=== PATIENT | male | born 1975 | race Caucasian/White ===

== ENCOUNTER 2019-12-23 12:39 | Emergency (ER) | payer OTHER ==
[~2019-12-23] VITALS: Ht 185.4 cm; Wt 72.6 kg
[2019-12-23 13:20] VITALS: BP 167/107
== END 2019-12-23 13:20 ==
LOC: ER 12:39
DX: M79.671 Pain in right foot (principal); M79.672 Pain in left foot; Z53.21 Procedure and treatment not carried out due to patient leaving prior to being seen by health care provider

== ENCOUNTER 2020-03-25 06:37 | Emergency (ER) | payer OTHER ==
[~2020-03-25] VITALS: Ht 182.9 cm; Wt 70.3 kg
[2020-03-25 07:39] VITALS: BP 153/88
== END 2020-03-25 07:41 | disposition home or self-care (01) ==
LOC: ER 06:37
DX: F15.10 Other stimulant abuse, uncomplicated (principal); Z88.0 Allergy status to penicillin

== ENCOUNTER 2020-04-28 07:57 | Emergency (ER) | payer OTHER ==
[~2020-04-28] VITALS: Ht 185.4 cm; Wt 65.8 kg
[2020-04-28 07:59] VITALS: BP 171/113
== END 2020-04-28 08:38 | disposition home or self-care (01) ==
LOC: ER 07:57
DX: Z00.00 Encounter for general adult medical examination without abnormal findings (principal); F17.210 Nicotine dependence, cigarettes, uncomplicated; Z88.0 Allergy status to penicillin; Z59.0 Homelessness

== ENCOUNTER 2020-05-26 06:53 | Emergency (ER) | payer OTHER ==
[~2020-05-26] VITALS: Ht 185.4 cm; Wt 81.7 kg
[2020-05-26 08:41] VITALS: BP 136/86
== END 2020-05-26 09:17 | disposition home or self-care (01) ==
LOC: ER 06:53
DX: S63.501A Unspecified sprain of right wrist, initial encounter (principal); F17.210 Nicotine dependence, cigarettes, uncomplicated; Z88.0 Allergy status to penicillin; V87.8XXA Person injured in other specified noncollision transport accidents involving motor vehicle (traffic), initial encounter; Y93.89 Activity, other specified; Y92.89 Other specified places as the place of occurrence of the external cause; Y99.8 Other external cause status

== ENCOUNTER 2020-08-03 16:05 | Emergency (ER) | payer OTHER ==
[~2020-08-03] VITALS: Ht 185.4 cm; Wt 67.1 kg
[2020-08-03 16:10] VITALS: BP 137/89
[2020-08-03] MEDS ORDERED: NAPROSYN500 MG PO (16:24)
== END 2020-08-03 16:40 | disposition home or self-care (01) ==
LOC: ER 16:05
DX: D17.24 Benign lipomatous neoplasm of skin and subcutaneous tissue of left leg (principal); D17.23 Benign lipomatous neoplasm of skin and subcutaneous tissue of right leg; F17.210 Nicotine dependence, cigarettes, uncomplicated; Z88.0 Allergy status to penicillin

== ENCOUNTER 2020-08-08 08:47 | Emergency (ER) | payer OTHER ==
[~2020-08-08] VITALS: Ht 185.4 cm; Wt 68.0 kg
[~2020-08-08 08:47] MED LIST: NAPROSYN500 MG PO
[2020-08-08 08:51] VITALS: BP 138/97
--- NOTE | 2020-08-08 14:10 | EKG ---
[address] [place] [address] ELECTROCARDIOGRAM REPORT Name: MIGUEL A BONILLA Room #: REG DADA Zepeda#: [id number] Admission: 08/08/20 Attend Phys: Discharge: Date of : 77 Report #: [id number] [facility] ED Test Date: 2020-08-08 Test Time: 08:50:40 Pat Name: MIGUEL A BONILLA Department: Room: Gender: M Dental Patient Coordinator: reji : 1975 Requested By: Joe Mcdaniel Order Number: [id number] MD: Jaret Bergman Measurements Intervals [place] Rate: 89 P: 85 NV: 153 QRS: 90 QRSD: 100 T: 65 QT: 367 QTc: 447 Interpretive Statements Sinus rhythm Right atrial enlargement Borderline right axis deviation Abnormal R-wave progression, late transition Probable left ventricular hypertrophy Baseline wander in lead(s) V2 No previous ECG available for comparison Electronically Signed On 08-08-2020 14:10:47 MACHINERY RIGGER by Jaret Bergman [email or web address] <ELECTRONICALLY SIGNED> By: Jaret Bergman MD, [facility] 08/08/20 1410 0850 0850 Jaret Bergman MD, FACAyo /EPI
== END 2020-08-08 09:50 | disposition home or self-care (01) ==
LOC: ER 08:47
DX: G89.29 Other chronic pain (principal); M25.512 Pain in left shoulder; F17.210 Nicotine dependence, cigarettes, uncomplicated; Z88.0 Allergy status to penicillin

== ENCOUNTER 2020-12-14 04:28 | Emergency (ER) | payer OTHER ==
[~2020-12-14] VITALS: Ht 185.4 cm; Wt 68.0 kg
[2020-12-14 05:58] VITALS: BP 151/97
== END 2020-12-14 06:00 | disposition home or self-care (01) ==
LOC: ER 04:28
DX: S01.01XA Laceration without foreign body of scalp, initial encounter (principal); M54.2 Cervicalgia; F17.210 Nicotine dependence, cigarettes, uncomplicated; Z59.0 Homelessness; Z98.890 Other specified postprocedural states; Z88.0 Allergy status to penicillin; W18.09XA Striking against other object with subsequent fall, initial encounter; Y93.89 Activity, other specified; Y92.89 Other specified places as the place of occurrence of the external cause; Y99.8 Other external cause status

== ENCOUNTER → 2020-12-14 | Emergency (ER) | payer OTHER ==
[~2020-12-14] VITALS: Ht 185.4 cm; Wt 69.8 kg
[2020-12-14 01:12] VITALS: BP 148/94
== END ==
LOC: ER 01:06
DX: S01.21XA Laceration without foreign body of nose, initial encounter (principal); Z53.21 Procedure and treatment not carried out due to patient leaving prior to being seen by health care provider; X58.XXXA Exposure to other specified factors, initial encounter; Y93.89 Activity, other specified; Y92.89 Other specified places as the place of occurrence of the external cause; Y99.8 Other external cause status

== ENCOUNTER 2020-12-26 22:26 | Emergency (ER) | payer OTHER ==
[~2020-12-26] VITALS: Ht 185.4 cm; Wt 71.2 kg
[2020-12-26 22:27] VITALS: BP 158/108
== END 2020-12-26 22:45 | disposition home or self-care (01) ==
LOC: ER 22:26
DX: S01.01XD Laceration without foreign body of scalp, subsequent encounter (principal); F17.210 Nicotine dependence, cigarettes, uncomplicated; Z98.890 Other specified postprocedural states; Z88.0 Allergy status to penicillin; X58.XXXD Exposure to other specified factors, subsequent encounter

== ENCOUNTER 2021-04-03 00:04 | Emergency (ER) | payer OTHER ==
[~2021-04-03] VITALS: Ht 185.4 cm; Wt 65.8 kg
[2021-04-03] MEDS ORDERED: NORCO5 PO (00:54)
[2021-04-03 01:00] VITALS: BP 171/105
== END 2021-04-03 01:01 | disposition home or self-care (01) ==
LOC: ER 00:04
DX: S42.002A Fracture of unspecified part of left clavicle, initial encounter for closed fracture (principal); I10 Essential (primary) hypertension; F17.210 Nicotine dependence, cigarettes, uncomplicated; F12.90 Cannabis use, unspecified, uncomplicated; Z98.890 Other specified postprocedural states; Z88.0 Allergy status to penicillin; V29.3XXA Motorcycle rider (driver) (passenger) injured in unspecified nontraffic accident, initial encounter; Y93.89 Activity, other specified; Y92.89 Other specified places as the place of occurrence of the external cause; Y99.8 Other external cause status

== ENCOUNTER 2021-04-11 04:37 | Emergency (ER) | payer OTHER ==
[~2021-04-11] VITALS: Ht 185.4 cm; Wt 68.0 kg
[~2021-04-11 04:37] MED LIST changes: +IBU600 MG PO; +IBUPROFEN 600600 M1 PO; +LISINOPRIL10 MG PO; +LISINOPRIL5 MG PO; +MECLIZINE HCL25 M1 PO; +NORCO5 PO; +ONDANSETRON HCL4 M2 PO
[2021-04-11 06:03] VITALS: BP 167/114
== END 2021-04-11 06:12 | disposition home or self-care (01) ==
LOC: ER 04:37
DX: I10 Essential (primary) hypertension (principal); Z88.0 Allergy status to penicillin

== ENCOUNTER 2021-04-15 04:04 | Emergency (ER) | payer OTHER ==
[~2021-04-15] VITALS: Ht 185.4 cm; Wt 65.8 kg
[2021-04-15 07:31] VITALS: BP 132/76
== END 2021-04-15 06:00 | disposition home or self-care (01) ==
LOC: ER 04:04
DX: M25.512 Pain in left shoulder (principal); Z87.81 Personal history of (healed) traumatic fracture; I10 Essential (primary) hypertension; F12.90 Cannabis use, unspecified, uncomplicated; F15.90 Other stimulant use, unspecified, uncomplicated; Z98.890 Other specified postprocedural states; Z79.1 Long term (current) use of non-steroidal anti-inflammatories (NSAID); Z79.891 Long term (current) use of opiate analgesic; Z79.899 Other long term (current) drug therapy; Z88.0 Allergy status to penicillin

== ENCOUNTER 2021-04-21 00:10 | Emergency (ER) | payer OTHER ==
[~2021-04-21] VITALS: Ht 185.4 cm; Wt 65.8 kg
[2021-04-21 07:39] VITALS: BP 178/123
== END 2021-04-21 07:39 | disposition home or self-care (01) ==
LOC: ER 00:10
DX: M25.512 Pain in left shoulder (principal); I10 Essential (primary) hypertension; F17.210 Nicotine dependence, cigarettes, uncomplicated; Z59.0 Homelessness; Z98.890 Other specified postprocedural states; Z72.89 Other problems related to lifestyle; Z79.1 Long term (current) use of non-steroidal anti-inflammatories (NSAID); Z79.891 Long term (current) use of opiate analgesic; Z88.0 Allergy status to penicillin

== ENCOUNTER → 2021-04-27 | Emergency (ER) | payer OTHER | LOC: ER 02:03 | DX: Z53.21 Procedure and treatment not carried out due to patient leaving prior to being seen by health care provider (principal) ==

== ENCOUNTER 2021-04-28 01:37 | Emergency (ER) | payer OTHER ==
[~2021-04-28] VITALS: Ht 185.4 cm; Wt 68.0 kg
[2021-04-28 02:15] VITALS: BP 138/105
== END 2021-04-28 02:15 | disposition home or self-care (01) ==
LOC: ER 01:37
DX: S42.002A Fracture of unspecified part of left clavicle, initial encounter for closed fracture (principal); I10 Essential (primary) hypertension; Z88.0 Allergy status to penicillin; X58.XXXA Exposure to other specified factors, initial encounter; Y93.89 Activity, other specified; Y92.89 Other specified places as the place of occurrence of the external cause; Y99.8 Other external cause status

== ENCOUNTER 2021-05-07 02:35 | Emergency (ER) | payer OTHER ==
[~2021-05-07] VITALS: Ht 185.4 cm; Wt 68.0 kg
[2021-05-07 02:39] VITALS: BP 152/111
== END 2021-05-07 03:37 | disposition home or self-care (01) ==
LOC: ER 02:35
DX: M25.512 Pain in left shoulder (principal); I10 Essential (primary) hypertension; F17.210 Nicotine dependence, cigarettes, uncomplicated; Z98.890 Other specified postprocedural states; Z79.1 Long term (current) use of non-steroidal anti-inflammatories (NSAID); Z88.0 Allergy status to penicillin

== ENCOUNTER 2021-05-12 03:40 | Emergency (ER) | payer OTHER ==
[~2021-05-12] VITALS: Ht 185.4 cm; Wt 68.0 kg
--- NOTE | ~2021-05-12 | EMS ---
[facility] [address] [place] [address] EMS Patient Care Report Name: MIGUEL A BONILLA Room #: DEP DADA Zepeda#: [id number] Admission: 05/12/21 Attend Phys: Discharge: 05/12/21 Date of : 77 Report #: [id number] THIS REPORT FOR: //name// Report Transmitted: 05/15/2021 14:23 EMS Care Summary [place], [place]/[facility] Incident [id number] @ 05/12/2021 03:12 Incident Location [address] [place] [id number] Patient MIGUEL A BONILLA Male, 45 Years 1975 Patient Address HOMELESS Patient History Hypertension (HTN), Patient Allergies No known allergies, Patient Medications None Reported, Chief Complaint L shoulder pain Disposition Transported No Lights/[place] Dispatch Reason Traumatic Injury Transported To [facility] Narrative 45 y/o male fall with possible clavicle Fx Upon arrival the pt was standing outside [place] talking with PD. The pt is awake, conscious, A&O x 4 with a GCS of 15. He has a patent airway, breathing is normal, and has a strong reg radial pulse. The pt states he's had 3 beers [facility] [address] [place] [address] EMS Patient Care Report Name: MIGUEL A BONILLA Room #: DEP DADA MishraLavern#: [id number] Admission: 05/12/21 Attend Phys: Discharge: 05/12/21 Date of : 77 Report #: [id number] tonight. He states he was walking down [address] and wasn't paying attention and tripped over a brick in the walkway. He states he had a shoulder Fx of his L shoulder 2 weeks ago and today fell on it again while intoxicated this evening He ambulated into the ambulance, sat on the bench seat and secured his seat belt on his own. VS were obtained. The pt is requesting to go to [facility]. The pt was transported to [place] [facility] with out incident or changes with the pt during transport. Pt was taken to triage were he was checked in and report given. The pt had a steady gait waling into the ED. EMS returned to service. Initial Vitals @03:21P: 82,BP: 188/108,CO: 2,SpO2: 99, @03:20P: 80,BP: 182/106,SpO2: 96, @03:22P: 83,R: 14,BP: 174/107,Pain: 8/10,GCS: 15,CO: 3,SpO2: 99,Revised Trauma: 12, Assessments @:22MENTAL:Place Oriented,Event Oriented,Time Oriented,Person Oriented,SKIN:HEENT:Head/Face: No Abnormalities,Neck/Airway: No Abnormalities,LUNG SOUNDS:General: No Abnormalities,ABDOMEN:General: No Abnormalities,PELVIS//GI:No Abnormalities,EXTREMITIES:Capillary Refill: Right Upper: < 2 Sec,Capillary Refill: Left Upper: < 2 Sec,Left Arm: No Abnormalities,Right Arm: No Abnormalities,Left Leg: No Abnormalities,Right Leg: No Abnormalities,PULSE:Radial: 2+ Normal,NEURO:No Abnormalities, Impression Injury of Shoulder or Upper Arm Procedures @03:22ALS AssessmentResponse: UnchangedSucceeded Timeline 03:06,Call Received 03:06,Dispatch Notified 03:12,Dispatched 03:13,En Route 03:18,On Scene 03:19,At Patient 03:20,BP: 182/106 M,PULSE: 80,RR: R,SPO2: 96 Ox,ETCO2: ,BG: ,PAIN: ,GCS: , 03:21,BP: 188/108 M,PULSE: 82,RR: R,SPO2: 99 Ox,ETCO2: ,BG: ,PAIN: ,GCS: , 03:22,BP: 174/107 M,PULSE: 83,RR: 14 R,SPO2: 99 Ox,ETCO2: ,BG: ,PAIN: 8,GCS: 15, 03:22,ALS Assessment,Response: UnchangedSucceeded, 03:24,Depart Scene 03:35,At Destination 03:47,Call Closed [facility] [address] [place] [address] EMS Patient Care Report Name: MIGUEL A BONILLA Room #: YASHIRA Zepeda#: [id number] Admission: 05/12/21 Attend Phys: Discharge: 05/12/21 Date of : 77 Report #: [id number] Disclaimer v1.1 Copyright 2020 [employer] This EMS Care Summary contains data elements from the applicable legal record (which may be displayed differently). It is designed to provide pertinent information for the following purposes: continuity of care, clinical quality, and state data reporting. The complete legal record is available to ED staff and administrators of the receiving hospital in [employer] Patient Tracker. All data is provided "as is."
[2021-05-12 03:47] VITALS: BP 144/109
== END 2021-05-12 04:37 | disposition home or self-care (01) ==
LOC: ER 03:40
DX: M25.512 Pain in left shoulder (principal); I10 Essential (primary) hypertension; F17.210 Nicotine dependence, cigarettes, uncomplicated; F12.90 Cannabis use, unspecified, uncomplicated; Z98.890 Other specified postprocedural states; Z79.899 Other long term (current) drug therapy; Z88.0 Allergy status to penicillin

== ENCOUNTER 2021-05-23 21:47 | Emergency (ER) | payer OTHER ==
[~2021-05-23] VITALS: Ht 185.4 cm; Wt 68.0 kg
[2021-05-24 00:09] LABS: ABSOLUTE NEUTROPHILS 6.8 thou/uL (1.4-8.2); BASOPHILS 0.2 % (0.0-2.0); EOSINOPHILS 0.4 % (0.0-3.0); HEMATOCRIT 43.9 % (42.0-52.0); HEMOGLOBIN 14.6 gm/dL (14.0-18.0); LYMPHOCYTES 5.2 % (24.0-44.0); MCH 29.5 pg (26.0-34.0); MCHC 33.2 g/dL (28.0-37.0); MCV 88.6 fL (80.0-100.0); PLATELET COUNT 214 thou/uL (150-400); POLYS 90.2 % (36.0-66.0); RBC 4.96 mil/uL (4.50-6.00); RDW 13.3 % (10.5-14.5); WBC 7.6 thou/uL (4.0-11.0)
[2021-05-24 00:12] LABS: CALCIUM 8.6 mg/dL (8.5-10.1); CREATININE 0.7 mg/dL (0.7-1.3); POTASSIUM 4.3 mmol/L (3.5-5.1)
[2021-05-24 00:18] LABS: ALBUMIN 3.4 g/dL (3.4-5.0); TOTAL BILIRUBIN 0.6 mg/dL (0.2-1.0)
[2021-05-24 01:01] VITALS: BP 157/106
== END 2021-05-24 01:04 | disposition home or self-care (01) ==
LOC: ER 21:47
PROVIDERS: Emergency Medicine
DX: R10.13 Epigastric pain (principal); R11.0 Nausea; I10 Essential (primary) hypertension; F17.210 Nicotine dependence, cigarettes, uncomplicated; Z98.890 Other specified postprocedural states; Z72.89 Other problems related to lifestyle; Z79.1 Long term (current) use of non-steroidal anti-inflammatories (NSAID); Z79.899 Other long term (current) drug therapy; Z88.0 Allergy status to penicillin

== ENCOUNTER → 2021-05-23 | Emergency (ER) | payer OTHER ==
[~2021-05-23] VITALS: Ht 185.4 cm; Wt 68.0 kg
[~2021-05-23] MED LIST changes: +CEPHALEXIN500 MG PO; +IBUPROFEN 800800 MG PO
[2021-05-23 05:26] VITALS: BP 142/76
== END ==
LOC: ER 03:51
DX: T25.122A Burn of first degree of left foot, initial encounter (principal); T25.121A Burn of first degree of right foot, initial encounter; T31.0 Burns involving less than 10% of body surface; I10 Essential (primary) hypertension; F17.210 Nicotine dependence, cigarettes, uncomplicated; Z98.890 Other specified postprocedural states; Z79.899 Other long term (current) drug therapy; Z88.0 Allergy status to penicillin

== ENCOUNTER 2021-06-08 23:42 | Emergency (ER) | payer OTHER ==
[~2021-06-08] VITALS: Ht 172.7 cm; Wt 68.0 kg
[2021-06-08] MEDS ORDERED: LISINOPRIL10 MG PO (23:56)
[2021-06-09 00:27] VITALS: BP 151/99
== END 2021-06-09 00:29 | disposition home or self-care (01) ==
LOC: ER 23:42
DX: I10 Essential (primary) hypertension (principal); F17.210 Nicotine dependence, cigarettes, uncomplicated; Z98.890 Other specified postprocedural states; Z79.891 Long term (current) use of opiate analgesic; Z79.899 Other long term (current) drug therapy; Z88.0 Allergy status to penicillin

== ENCOUNTER → 2021-06-12 | Emergency (ER) | payer OTHER ==
[~2021-06-12] VITALS: Ht 185.4 cm; Wt 68.0 kg
[2021-06-12 21:08] VITALS: BP 148/102
== END ==
LOC: ER 21:00
DX: S60.561A Insect bite (nonvenomous) of right hand, initial encounter (principal); I10 Essential (primary) hypertension; F17.210 Nicotine dependence, cigarettes, uncomplicated; F15.10 Other stimulant abuse, uncomplicated; F10.10 Alcohol abuse, uncomplicated; Z98.890 Other specified postprocedural states; Z79.891 Long term (current) use of opiate analgesic; Z79.1 Long term (current) use of non-steroidal anti-inflammatories (NSAID); Z79.899 Other long term (current) drug therapy; Z88.0 Allergy status to penicillin

== ENCOUNTER 2021-06-13 00:05 | Emergency (ER) | payer OTHER ==
[~2021-06-13] VITALS: Ht 185.4 cm; Wt 68.0 kg
[2021-06-13 00:06] VITALS: BP 145/97
== END 2021-06-13 02:13 | disposition home or self-care (01) ==
LOC: ER 00:05
DX: R42 Dizziness and giddiness (principal); I10 Essential (primary) hypertension; F17.210 Nicotine dependence, cigarettes, uncomplicated; Z98.890 Other specified postprocedural states; Z79.891 Long term (current) use of opiate analgesic; Z79.1 Long term (current) use of non-steroidal anti-inflammatories (NSAID); Z79.899 Other long term (current) drug therapy; Z88.0 Allergy status to penicillin

== ENCOUNTER 2021-06-14 04:00 | Emergency (ER) | payer OTHER ==
[~2021-06-14] VITALS: Ht 185.4 cm; Wt 65.8 kg
[2021-06-14 04:00] VITALS: BP 142/96
== END 2021-06-14 04:25 | disposition home or self-care (01) ==
LOC: ER 04:00
DX: T69.9XXA Effect of reduced temperature, unspecified, initial encounter (principal); G89.28 Other chronic postprocedural pain; M25.512 Pain in left shoulder; I10 Essential (primary) hypertension; F17.210 Nicotine dependence, cigarettes, uncomplicated; Z98.890 Other specified postprocedural states; Z79.891 Long term (current) use of opiate analgesic; Z79.899 Other long term (current) drug therapy; Z88.0 Allergy status to penicillin; X31.XXXA Exposure to excessive natural cold, initial encounter; Y93.89 Activity, other specified; Y92.89 Other specified places as the place of occurrence of the external cause; Y99.8 Other external cause status

== ENCOUNTER 2021-06-15 00:16 | Emergency (ER) | payer OTHER ==
[~2021-06-15] VITALS: Ht 182.9 cm; Wt 65.8 kg
[2021-06-15 01:07] LABS: ABSOLUTE NEUTROPHILS 5.2 thou/uL (1.4-8.2); BASOPHILS 0.8 % (0.0-2.0); EOSINOPHILS 2.3 % (0.0-3.0); HEMATOCRIT 39.7 % (42.0-52.0); HEMOGLOBIN 13.3 gm/dL (14.0-18.0); LYMPHOCYTES 19.8 % (24.0-44.0); MCH 29.4 pg (26.0-34.0); MCHC 33.5 g/dL (28.0-37.0); MCV 87.9 fL (80.0-100.0); MONOCYTES 8.9 % (1.0-8.0); PLATELET COUNT 228 thou/uL (150-400); POLYS 68.2 % (36.0-66.0); RBC 4.52 mil/uL (4.50-6.00); RDW 13.5 % (10.5-14.5); WBC 7.6 thou/uL (4.0-11.0)
[2021-06-15 01:18] LABS: CALCIUM 8.7 mg/dL (8.5-10.1); CREATININE 0.7 mg/dL (0.7-1.3)
[2021-06-15 01:25] LABS: POTASSIUM 3.6 mmol/L (3.5-5.1)
[2021-06-15 04:01] VITALS: BP 140/70
== END 2021-06-15 04:00 | disposition home or self-care (01) ==
LOC: ER 00:16
PROVIDERS: Student in an Organized Health Care Education/Training Program
DX: R53.83 Other fatigue (principal); I10 Essential (primary) hypertension; F17.210 Nicotine dependence, cigarettes, uncomplicated; Z98.890 Other specified postprocedural states; Z79.891 Long term (current) use of opiate analgesic; Z79.1 Long term (current) use of non-steroidal anti-inflammatories (NSAID); Z79.899 Other long term (current) drug therapy; Z88.0 Allergy status to penicillin

== ENCOUNTER 2021-06-18 00:51 | Emergency (ER) | payer OTHER ==
[~2021-06-18] VITALS: Ht 185.4 cm; Wt 63.5 kg
[2021-06-18 05:20] VITALS: BP 142/70
== END 2021-06-18 06:24 | disposition home or self-care (01) ==
LOC: ER 00:51
DX: J00 Acute nasopharyngitis [common cold] (principal); I10 Essential (primary) hypertension; F17.210 Nicotine dependence, cigarettes, uncomplicated; F12.90 Cannabis use, unspecified, uncomplicated; Z98.890 Other specified postprocedural states; Z79.891 Long term (current) use of opiate analgesic; Z79.899 Other long term (current) drug therapy; Z88.0 Allergy status to penicillin

== ENCOUNTER 2021-06-21 04:30 | Emergency (ER) | payer OTHER ==
[~2021-06-21] VITALS: Ht 185.4 cm; Wt 63.5 kg
[2021-06-21 04:32] VITALS: BP 159/104
[2021-06-21] MEDS ORDERED: NORVASC5 MG PO (04:49)
[2021-06-21] MEDS ORDERED: DOXYCYCLINE 10100 MG PO (16:52)
== END 2021-06-21 04:56 | disposition home or self-care (01) ==
LOC: ER 04:30
DX: I10 Essential (primary) hypertension (principal); F15.10 Other stimulant abuse, uncomplicated; F17.210 Nicotine dependence, cigarettes, uncomplicated; Z98.890 Other specified postprocedural states; Z79.891 Long term (current) use of opiate analgesic; Z79.899 Other long term (current) drug therapy; Z88.0 Allergy status to penicillin

== ENCOUNTER 2021-06-21 16:00 | Emergency (ER) | payer OTHER ==
[~2021-06-21] VITALS: Ht 185.4 cm; Wt 56.7 kg
[~2021-06-21 16:00] MED LIST changes: +NORVASC5 MG PO
[2021-06-21 16:09] VITALS: BP 151/99
[2021-06-21] MEDS ORDERED: DOXYCYCLINE 10100 MG PO (16:52)
== END 2021-06-21 17:09 | disposition home or self-care (01) ==
LOC: ER 16:00
DX: S60.410A Abrasion of right index finger, initial encounter (principal); I10 Essential (primary) hypertension; F17.210 Nicotine dependence, cigarettes, uncomplicated; Z98.890 Other specified postprocedural states; Z79.891 Long term (current) use of opiate analgesic; Z79.899 Other long term (current) drug therapy; Z88.0 Allergy status to penicillin; W54.0XXA Bitten by dog, initial encounter; Y93.89 Activity, other specified; Y92.89 Other specified places as the place of occurrence of the external cause; Y99.8 Other external cause status

== ENCOUNTER 2021-06-21 22:25 | Emergency (ER) | payer OTHER ==
[~2021-06-21] VITALS: Ht 188 cm; Wt 63.5 kg
[~2021-06-21 22:25] MED LIST changes: +DOXYCYCLINE 10100 MG PO
[2021-06-22 01:27] VITALS: BP 145/68
== END 2021-06-22 00:40 | disposition home or self-care (01) ==
LOC: ER 22:25
DX: M79.642 Pain in left hand (principal); M79.641 Pain in right hand; L85.3 Xerosis cutis; I10 Essential (primary) hypertension; F17.210 Nicotine dependence, cigarettes, uncomplicated; Z98.890 Other specified postprocedural states; Z79.1 Long term (current) use of non-steroidal anti-inflammatories (NSAID); Z79.891 Long term (current) use of opiate analgesic; Z79.899 Other long term (current) drug therapy; Z88.0 Allergy status to penicillin

== ENCOUNTER 2021-06-25 19:59 | Emergency (ER) | payer OTHER ==
[~2021-06-25] VITALS: Ht 188 cm; Wt 70.3 kg
[2021-06-25 20:32] VITALS: BP 134/72
== END 2021-06-25 20:33 | disposition home or self-care (01) ==
LOC: ER 19:59
DX: F40.218 Other animal type phobia (principal); I10 Essential (primary) hypertension; F17.210 Nicotine dependence, cigarettes, uncomplicated; Z98.890 Other specified postprocedural states; Z59.00 Homelessness unspecified; Z79.891 Long term (current) use of opiate analgesic; Z79.899 Other long term (current) drug therapy; Z88.0 Allergy status to penicillin

== ENCOUNTER 2021-06-27 03:01 | Emergency (ER) | payer OTHER ==
[~2021-06-27] VITALS: Ht 175.3 cm; Wt 72.6 kg
[2021-06-27 04:23] VITALS: BP 149/98
== END 2021-06-27 04:30 | disposition home or self-care (01) ==
LOC: ER 03:01
DX: I10 Essential (primary) hypertension (principal); F17.210 Nicotine dependence, cigarettes, uncomplicated; Z88.0 Allergy status to penicillin; Z79.899 Other long term (current) drug therapy; Z98.890 Other specified postprocedural states

== ENCOUNTER 2021-06-28 21:43 | Emergency (ER) | payer OTHER ==
[~2021-06-28] VITALS: Ht 182.9 cm; Wt 63.5 kg
[2021-06-29 04:45] VITALS: BP 175/102
== END 2021-06-29 04:00 | disposition home or self-care (01) ==
LOC: ER 21:43
DX: M54.50 Low back pain, unspecified (principal); I10 Essential (primary) hypertension; F17.210 Nicotine dependence, cigarettes, uncomplicated; F12.90 Cannabis use, unspecified, uncomplicated; Z98.890 Other specified postprocedural states; Z59.00 Homelessness unspecified; Z79.891 Long term (current) use of opiate analgesic; Z79.899 Other long term (current) drug therapy; Z79.1 Long term (current) use of non-steroidal anti-inflammatories (NSAID); Z88.0 Allergy status to penicillin; V19.3XXA Pedal cyclist (driver) (passenger) injured in unspecified nontraffic accident, initial encounter; Y93.89 Activity, other specified; Y92.89 Other specified places as the place of occurrence of the external cause; Y99.8 Other external cause status

== ENCOUNTER 2021-07-05 21:04 | Emergency (ER) | payer OTHER ==
[~2021-07-05] VITALS: Ht 182.9 cm; Wt 76.2 kg
[2021-07-05] MEDS ORDERED: ZESTRIL10 MG PO (21:16)
[2021-07-05 21:35] VITALS: BP 147/93
== END 2021-07-05 22:07 | disposition home or self-care (01) ==
LOC: ER 21:04
DX: I10 Essential (primary) hypertension (principal); Z76.0 Encounter for issue of repeat prescription; R42 Dizziness and giddiness; F17.210 Nicotine dependence, cigarettes, uncomplicated; Z88.0 Allergy status to penicillin; Z79.899 Other long term (current) drug therapy; Z98.890 Other specified postprocedural states; Z59.00 Homelessness unspecified

== ENCOUNTER 2021-07-10 02:52 | Emergency (ER) | payer OTHER ==
[~2021-07-10] VITALS: Ht 185.4 cm; Wt 68.0 kg
[~2021-07-10 02:52] MED LIST changes: +ZESTRIL10 MG PO
[2021-07-10 02:58] VITALS: BP 153/97
[2021-07-10] MEDS ORDERED: IBUPROFEN 800800 MG PO (03:14)
== END 2021-07-10 04:28 | disposition home or self-care (01) ==
LOC: ER 02:52
DX: M54.50 Low back pain, unspecified (principal); I10 Essential (primary) hypertension; F17.210 Nicotine dependence, cigarettes, uncomplicated; Z98.890 Other specified postprocedural states; Z59.00 Homelessness unspecified; Z79.899 Other long term (current) drug therapy; Z88.0 Allergy status to penicillin

== ENCOUNTER 2021-07-12 01:09 | Emergency (ER) | payer OTHER ==
[~2021-07-12] VITALS: Ht 188 cm; Wt 68.0 kg
[2021-07-12 01:14] VITALS: BP 152/90
[2021-07-17] MEDS ORDERED: LOSARTAN-HCTZ1 EACH PO (01:02)
== END 2021-07-12 02:30 | disposition home or self-care (01) ==
LOC: ER 01:09
DX: J00 Acute nasopharyngitis [common cold] (principal); M54.50 Low back pain, unspecified; I10 Essential (primary) hypertension; F17.210 Nicotine dependence, cigarettes, uncomplicated; Z98.890 Other specified postprocedural states; Z59.00 Homelessness unspecified; Z79.891 Long term (current) use of opiate analgesic; Z79.899 Other long term (current) drug therapy; Z88.0 Allergy status to penicillin

== ENCOUNTER 2021-07-17 00:37 | Emergency (ER) | payer OTHER ==
[~2021-07-17] VITALS: Ht 188 cm; Wt 68.0 kg
[2021-07-17] MEDS ORDERED: LOSARTAN-HCTZ1 EACH PO ×2 (01:02→02:07)
[2021-07-17 03:00] VITALS: BP 142/91
--- NOTE | 2021-07-17 11:27 | NUR ---
VM ON CM LINE [phone] FROM [facility] IN ER INDICATING SCRIPT SENT TO OP PHARMACY AND PT WITH NO FUNDS TO PAY. CALLED OP PHARM AND INDICATED CM VOUCHING FOR THIS SCRIPT. COST $16.13.
== END 2021-07-17 03:01 | disposition home or self-care (01) ==
LOC: ER 00:37
DX: T69.022A Immersion foot, left foot, initial encounter (principal); T69.021A Immersion foot, right foot, initial encounter; I10 Essential (primary) hypertension; F17.210 Nicotine dependence, cigarettes, uncomplicated; Z88.0 Allergy status to penicillin; Z79.899 Other long term (current) drug therapy; Z98.890 Other specified postprocedural states; X58.XXXA Exposure to other specified factors, initial encounter; Y93.89 Activity, other specified; Y92.89 Other specified places as the place of occurrence of the external cause; Y99.9 Unspecified external cause status

== ENCOUNTER 2021-07-25 20:31 | Emergency (ER) | payer OTHER ==
[~2021-07-25] VITALS: Ht 185.4 cm; Wt 68.0 kg
[~2021-07-25 20:31] MED LIST changes: +LOSARTAN-HCTZ1 EACH PO
[2021-07-25 22:00] VITALS: BP 146/96
== END 2021-07-25 22:00 | disposition left against medical advice (07) ==
LOC: ER 20:31
DX: R42 Dizziness and giddiness (principal); Z53.21 Procedure and treatment not carried out due to patient leaving prior to being seen by health care provider

== ENCOUNTER 2021-07-28 18:04 | Emergency (ER) | payer OTHER ==
[2021-07-28 18:51] VITALS: BP 130/77
== END 2021-07-28 22:18 | disposition left against medical advice (07) ==
LOC: ER 18:04
DX: R44.3 Hallucinations, unspecified (principal); I10 Essential (primary) hypertension; Z53.21 Procedure and treatment not carried out due to patient leaving prior to being seen by health care provider; Z98.890 Other specified postprocedural states; Z59.00 Homelessness unspecified; Z88.0 Allergy status to penicillin

== ENCOUNTER 2021-07-30 03:09 | Emergency (ER) | payer OTHER ==
[2021-07-30 03:10] VITALS: BP 146/84
== END 2021-07-30 06:37 | disposition left against medical advice (07) ==
LOC: ER 03:09
DX: M54.50 Low back pain, unspecified (principal); I10 Essential (primary) hypertension; Z53.21 Procedure and treatment not carried out due to patient leaving prior to being seen by health care provider; Z98.890 Other specified postprocedural states

== ENCOUNTER 2021-08-01 02:50 | Emergency (ER) | payer OTHER ==
[~2021-08-01] VITALS: Ht 182.9 cm; Wt 72.6 kg
[2021-08-01 03:45] VITALS: BP 140/103
== END 2021-08-01 04:00 | disposition home or self-care (01) ==
LOC: ER 02:50
DX: T69.9XXA Effect of reduced temperature, unspecified, initial encounter (principal); G89.29 Other chronic pain; M54.9 Dorsalgia, unspecified; I10 Essential (primary) hypertension; F17.210 Nicotine dependence, cigarettes, uncomplicated; Z88.0 Allergy status to penicillin

== ENCOUNTER 2021-08-04 23:55 | Emergency (ER) | payer OTHER ==
[2021-08-05 00:01] VITALS: BP 140/80
== END 2021-08-05 04:01 | disposition home or self-care (01) ==
LOC: ER 23:55
DX: I10 Essential (primary) hypertension (principal); F17.210 Nicotine dependence, cigarettes, uncomplicated; Z59.00 Homelessness unspecified; Z88.0 Allergy status to penicillin; Z79.899 Other long term (current) drug therapy

== ENCOUNTER 2021-08-27 06:41 | Emergency (ER) | payer OTHER ==
[~2021-08-27] VITALS: Ht 185.4 cm; Wt 68.0 kg
[2021-08-27 06:43] VITALS: BP 144/91
[2021-08-27] MEDS ORDERED: IBUPROFEN 800800 M1 PO (06:56)
== END 2021-08-27 07:21 | disposition home or self-care (01) ==
LOC: ER 06:41
DX: M54.59 Other low back pain (principal); I10 Essential (primary) hypertension; F17.210 Nicotine dependence, cigarettes, uncomplicated; Z88.0 Allergy status to penicillin

== ENCOUNTER 2021-09-28 02:09 | Emergency (ER) | payer OTHER ==
[~2021-09-28] VITALS: Ht 185.4 cm; Wt 68.0 kg
[~2021-09-28 02:09] MED LIST changes: +IBUPROFEN 800800 M1 PO
[2021-09-28] MEDS ORDERED: LISINOPRIL10 MG PO (02:26)
[2021-09-28 02:54] VITALS: BP 136/83
== END 2021-09-28 02:57 | disposition home or self-care (01) ==
LOC: ER 02:09
DX: R42 Dizziness and giddiness (principal); I10 Essential (primary) hypertension; F17.210 Nicotine dependence, cigarettes, uncomplicated; Z88.0 Allergy status to penicillin